=== PATIENT | female | born 1955 | race Caucasian/White ===

== ENCOUNTER 2020-12-30 14:55 | Emergency (ER) | payer BC, MEDICARE ==
[~2020-12-30] VITALS: Ht 167.6 cm; Wt 86.4 kg
[2020-12-30] MEDS ORDERED: acetaminophen 325mg tablet PO ONE (15:55)
[2020-12-30] MEDS ORDERED: ondansetron 4mg rapidly disintigrating tab PO ONE (15:55)
[2020-12-30] MEDS ORDERED: normal saline 1000ML IV soln IVB ONE (16:30)
[2020-12-30 16:42] LABS: BASOPHILS % (AUTO) 0.2 % (0-1); EOSINOPHILS % (AUTO) 0 % (0-6); HEMATOCRIT 41.5 % (35.0-45.0); HEMOGLOBIN 13.8 g/dl (12.0-16.0); LYMPHOCYTES # (AUTO) 1.5 X10'3 (1.1-4.8); LYMPHOCYTES % (AUTO) 22.6 % (21-51); MEAN CORPUSCULAR HEMOGLOBIN 28.1 PG (27.0-31.0); MEAN CORPUSCULAR HGB CONC 33.2 g/dL (33.0-36.5); MEAN CORPUSCULAR VOLUME 84.7 FL (78-98); MEAN PLATELET VOLUME 10.6 FL (7.4-10.4); MONOCYTES # (AUTO) 0.9 X10'3 (0-0.9); MONOCYTES % (AUTO) 12.7 % (2-12); NEUTROPHILS # (AUTO) 4.4 X10'3 (1.8-7.7); NEUTROPHILS % (AUTO) 64.5 % (42-75); PLATELET COUNT 167 X10'3 (140-440); RED CELL DISTRIBUTION WIDTH 15.7 % (11.5-14.5); WHITE BLOOD COUNT 6.8 X10'3 (4.5-11.0)
[2020-12-30 17:11] LABS: ALANINE AMINOTRANSFERASE 104 U/L (12-78); ALBUMIN 3.2 G/DL (3.4-5.0); ALBUMIN/GLOBULIN RATIO 0.8 (1.1-1.5); ALKALINE PHOSPHATASE 106 IU/L (46-116); ANION GAP 14 (8-16); ASPARTATE AMINO TRANSFERASE 97 U/L (10-37); BILIRUBIN,TOTAL 0.4 MG/DL (0.1-1.0); BLOOD UREA NITROGEN 20 MG/DL (7-18); BUN/CREATININE RATIO 21.1 (6.6-38.0); CALCIUM 8.8 MG/DL (8.5-10.1); CHLORIDE 102 MMOL/L (99-107); CREATININE 0.95 MG/DL (0.40-0.90); GLUCOSE 97 MG/DL (70-104); MAGNESIUM 2.2 MG/DL (1.5-2.4); POTASSIUM 3.3 MMOL/L (3.5-5.1); SODIUM 138 MMOL/L (135-145); TOTAL CARBON DIOXIDE 21.8 MMOL/L (24-32); TOTAL PROTEIN 7.4 G/DL (6.4-8.2); eGFR 59 ML/MIN
[2020-12-30 17:20] VITALS: BP 109/64
[2020-12-30 17:22] LABS: LARGE PLATELETS FEW
[2020-12-30 17:25] LABS: PLATELET ESTIMATE NORMAL
[2020-12-30] MEDS ORDERED: potassium Cl 20 mEq SR tablet PO STA (17:32)
[2020-12-30] MEDS ORDERED: azithromycin 250mg tablet PO ONE (17:35)
[2020-12-30] MEDS ORDERED: AZIT-21 PO (17:37)
== END 2020-12-30 18:02 | disposition home or self-care (01) ==
LOC: ER 14:56
DX: U07.1 COVID-19 (principal); J18.9 Pneumonia, unspecified organism; R11.10 Vomiting, unspecified; R51.9 Headache, unspecified; R06.02 Shortness of breath; R50.9 Fever, unspecified; Z88.5 Allergy status to narcotic agent; Z79.2 Long term (current) use of antibiotics
CPT/HCPCS: 36415; 71045; 80053; 83735; 84145; 85008; 85025; 99284; J7030

== ENCOUNTER 2023-11-16 11:47 | Emergency (ER) | payer MEDICARE, BC ==
[~2023-11-16] VITALS: Ht 157.5 cm; Wt 105.0 kg
[2023-11-16] MEDS ORDERED: ketorolac trometh. 30mg/ml inj. IM ONE (12:50)
[2023-11-16] MEDS: HYDROcodone/acetaminophen 5mg/325mg tablet PO ONE (13:06)
[2023-11-16] MEDS: ketorolac tromethamine 15mg/ml inj. IM ONE (13:06)
[2023-11-16] MEDS ORDERED: NAPR-996 PO (13:20)
[2023-11-16] MEDS ORDERED: CYCL-394 PO (13:20)
[2023-11-16 13:32] VITALS: BP 156/89; PULSE 98; RESP 20; TEMP 97.8; O2SAT 97
== END 2023-11-16 13:37 | disposition home or self-care (01) ==
LOC: ER 11:48
DX: S76.911A Strain of unspecified muscles, fascia and tendons at thigh level, right thigh, initial encounter (principal); Z88.5 Allergy status to narcotic agent; Z79.899 Other long term (current) drug therapy; W19.XXXA Unspecified fall, initial encounter; Y93.89 Activity, other specified; Y92.89 Other specified places as the place of occurrence of the external cause; Y99.8 Other external cause status
CPT/HCPCS: 73502; 96372; 99284; J1885